=== PATIENT | male | born 1960 | race Asian ===

== ENCOUNTER 2017-11-26 08:36 | Outpatient (CLI) | payer OTHER ==
[~2017-11-26 08:36] MED LIST: ACYCLOVIR800 MG OR; CEPH500C20 PO; HYDR25SU3 RE; PSYL0.52C PO; QUETIAPINE25 MG PO; TRAM50TA PO
[2017-11-26 09:07] LABS: PLATELET COUNT 272 K/uL (142-355)
== END 2017-11-26 22:32 | disposition home or self-care (01) ==
LOC: LABW 08:36
PROVIDERS: Internal Medicine
DX: I10 Essential (primary) hypertension (principal); E78.4 Other hyperlipidemia
CPT/HCPCS: 36415; 80053; 80061; 81000; 84443; 85027

== ENCOUNTER 2019-02-21 09:40 | Outpatient (CLI) | payer OTHER ==
[2019-02-21 10:04] LABS: PLATELET COUNT 320 K/uL (142-355)
== END 2019-02-21 19:11 | disposition home or self-care (01) ==
LOC: LABW 09:40
PROVIDERS: Internal Medicine
DX: I10 Essential (primary) hypertension (principal); G80.9 Cerebral palsy, unspecified
CPT/HCPCS: 36415; 80053; 80061; 81000; 82306; 83036; 84439; 84443; 85027

== ENCOUNTER 2020-04-22 16:38 | Outpatient (CLI) | payer OTHER ==
[2020-04-22 16:53] LABS: PLATELET COUNT 289 K/uL (142-355)
[2020-04-22 17:20] LABS: POTASSIUM 4.1 mmol/L (3.6-5.2)
== END 2020-04-22 20:58 | disposition home or self-care (01) ==
LOC: LABW 16:38
PROVIDERS: ATTEND Internal Medicine
DX: E11.9 Type 2 diabetes mellitus without complications (principal)
CPT/HCPCS: 36415; 80053; 80061; 83036; 84439; 84443; 85027

== ENCOUNTER 2020-10-16 16:19 | Outpatient (CLI) | payer OTHER | END 2020-10-16 21:52 | disposition home or self-care (01) | LOC: LAB 16:19 | PROVIDERS: ATTEND Internal Medicine | DX: L02.511 Cutaneous abscess of right hand (principal) | CPT/HCPCS: 87070; 87205 ==

== ENCOUNTER 2021-01-02 08:05 | Outpatient (CLI) | payer OTHER ==
[2021-01-02 08:21] LABS: PLATELET COUNT 263 K/uL (142-355)
== END 2021-01-02 21:42 | disposition home or self-care (01) ==
LOC: LABW 08:05
PROVIDERS: ATTEND Internal Medicine
DX: E11.9 Type 2 diabetes mellitus without complications (principal)
CPT/HCPCS: 36415; 80053; 80061; 83036; 84439; 84443; 85027

== ENCOUNTER 2021-03-09 14:02 | Outpatient (CLI) | payer OTHER ==
[2021-03-09 14:15] LABS: PLATELET COUNT 307 K/uL (142-355)
[2021-03-09 14:36] LABS: POTASSIUM 3.7 mmol/L (3.6-5.2)
== END 2021-03-09 21:04 | disposition home or self-care (01) ==
LOC: LABW 14:02
PROVIDERS: ATTEND Internal Medicine
DX: K92.1 Melena (principal)
CPT/HCPCS: 36415; 80053; 84443; 85027

== ENCOUNTER 2021-08-24 09:48 | Outpatient (CLI) | payer OTHER ==
[2021-08-24 10:13] LABS: PLATELET COUNT 282 K/uL (142-355)
[2021-08-24 10:27] LABS: POTASSIUM 4.3 mmol/L (3.6-5.2)
== END 2021-08-24 20:58 | disposition home or self-care (01) ==
LOC: LABW 09:48
PROVIDERS: ATTEND Internal Medicine
DX: E11.9 Type 2 diabetes mellitus without complications (principal)
CPT/HCPCS: 36415; 80053; 80061; 83036; 84439; 84443; 85027

== ENCOUNTER 2022-01-23 08:33 | Outpatient (CLI) | payer OTHER ==
[2022-01-23 09:22] LABS: PLATELET COUNT 299 K/uL (142-355)
[2022-01-23 09:23] LABS: POTASSIUM 4.2 mmol/L (3.6-5.2)
== END 2022-01-23 18:48 | disposition home or self-care (01) ==
LOC: LABW 08:33
PROVIDERS: ATTEND Internal Medicine
DX: R73.9 Hyperglycemia, unspecified (principal)
CPT/HCPCS: 36415; 80053; 83036; 85027

== ENCOUNTER 2022-08-19 08:31 | Outpatient (CLI) | payer OTHER ==
[2022-08-19 08:54] LABS: PLATELET COUNT 298 K/uL (142-355)
== END 2022-08-19 18:59 | disposition home or self-care (01) ==
LOC: LABW 08:31
PROVIDERS: ATTEND Internal Medicine
DX: E11.9 Type 2 diabetes mellitus without complications (principal)
CPT/HCPCS: 36415; 80053; 80061; 81002; 83036; 84439; 84443; 85027